=== PATIENT | female | born 2000 | race Caucasian/White ===

== ENCOUNTER 2024-05-07 16:42 | Outpatient (CLI) | payer OTHER, BC, SELFPAY ==
[2024-05-07 17:00] VITALS: BP 127/67; PULSE 76
[2024-05-07 17:07] VITALS: BMI 37.3
[2024-05-07 17:07] LABS: Basophils Absolute Auto 0.1 K/mm3 (0.0-0.1); Basophils Percent Auto 0.5 % (0.2-1.2); Eosinophils Absolute Auto 0.3 K/mm3 (0-0.3); Eosinophils Percent Auto 2.1 % (0-4.4); Hematocrit 36.2 % (37.0-47.0); Hemoglobin 12.1 g/dL (12.0-15.0); Immature Granulocyte Absolute 0.09 K/mm3 (0.00-0.031); Immature Granulocyte Percent A 0.7 % (0-0.5); Lymphocytes Absolute Auto 2.06 K/mm3 (0.9-3.2); Lymphocytes Percent Auto 15.8 % (18.3-44.2); Mean Corpuscular HGB Conc 33.4 g/dl (32-36); Mean Corpuscular Hemoglobin 30.3 pg (26-34); Mean Corpuscular Volume 90.5 fl (80-100); Mean Platelet Volume 11.2 fl (7.4-10.4); Monocytes Percent Auto 7.7 % (2.6-8.5); Neutrophils Absolute Auto 9.6 K/mm3 (1.3-6.7); Neutrophils Percent Auto 73.2 % (45.5-73.1); Platelet Count Result 231 k/mm3 (150-375); Red Cell Distribution Width 12.5 % (11.5-14.5); White Blood Count 13.1 K/mm3 (4.5-10.0)
[2024-05-07 17:15] VITALS: BP 127/68; PULSE 82
[2024-05-07 17:16] LABS: Add Urine Microscopic? YES; Appearance Urine Cloudy (Clear); Bacteria Urine 4+ /hpf; Bilirubin Urine Negative (Negative); Blood Urine Negative (Negative); Color Urine Yellow (Yellow); Glucose Urine UA Negative (Negative); Ketones Urine 1+ mg/dL (Negative); Leukocyte Esterase Ur 2+ LEU/UL (Negative); Need Manual Microscopic Reviewed; Nitrate Urine Negative (Negative); Protein Urine 1+ mg/dL (Negative); RBC Urine 0-2 /hpf (0-2); Specific Grav Ur 1.031 (1.001-1.035); Squamous Epithelial Cell Urine Moderate /hpf (Few); WBC Urine >100 /hpf (0-3)
[2024-05-07 17:19] LABS: Creatinine Urine 233.9 mg/dL
[2024-05-07 17:26] LABS: Total Protein Urine Random < 5 mg/dL; Ur Ttl Prot Creatinine Ratio < 0.02 mg/mg (0-0.20)
[2024-05-07 17:30] VITALS: BP 125/70; PULSE 78
[2024-05-07 17:43] LABS: Alanine Aminotransferase 21 U/L (6-35); Alkaline Phosphatase 69 U/L (38-126); Anion Gap 11 mmol/L (4-12); Aspartate Amino Transferase 17 U/L (14-36); Bilirubin,Total 0.2 mg/dL (0.2-1.3); Blood Urea Nitrogen 7 mg/dL (7-17); Calcium 9.2 mg/dL (8.4-10.2); Carbon Dioxide 19 mmol/L (22-30); Chloride 105 mmol/L (98-107); Estimated CRCL calculation 159 ml/min; Estimated Glomerular Filt Rate > 60; Glucose 87 mg/dL (65-110); Sodium 135 mmol/L (137-145)
[2024-05-07 17:45] VITALS: BP 125/70; PULSE 78
--- NOTE | 2024-05-07 18:21 | PC.NURSE ---
Called Dr. Suarez with pt status. Informed of lab results and BPs. Reactive tracing. June D/C home with prescription for Macrobid BID x7 days.
--- OUTSIDE RECORDS SUMMARY | 2024-05-07 19:00 | XMS_ITS | Referral Summary ---
Author Organization [facility] Address [address] [place] [address] Care Team Providers Care Mechanical Assembler Name Role Phone TysonMaegan parr EDGAR Primary Care Provider [phone] Source Comments [facility],non-owned Affiliates and Associated Physician Practices is amultiple site organization consisting of ambulatory clinics and hospital sitesin [place], [place], [place] and [place]. This disclosure is being madepursuant to the Care Everywhere program and may not contain all information available regarding this patient. Last updated 17.[facility] Allergies Active Allergy Reactions Criticality Noted Date Comments Dust Mite Extract Unknown 07/25/2014 Fentanyl Itching Medium 10/12/2019 Molds & Smuts Unknown 07/25/2014 Pollen Extract Unknown 07/24/2013 Medications * Be aware that medications may not be up to date on this document. Alwaysverify current medications with the patient. Medication Sig Dispensed Refills Start Date End Date Status SPRINTEC 28 0.25-35 MG-MCG tablet 01/29/2020 Active Immunizations Name Administration Dates Next Due HEP A VACCINE, ADULT 12/03/2019 MENINGOCOCCAL CONJUGATE (MCV4P) 07/16/2016 TDAP (7yrs+) 09/29/2012 VARICELLA 06/04/2017 Social History Tobacco Use Types Packs/Day Years Used Date Smoking Tobacco: Never Smokeless Tobacco: Never Alcohol Use Standard Drinks/Week Comments Never 0 (1 standard drink = 0.6 oz pur e alcohol) AUDIT-C Answer Date Recorded Q1: How often do you have a drink containing alc ohol? Never 05/06/2020 Average Number of Drinks Not on file 021 Frequency of Binge Drinking Not on file 10/2020 Sex and Gender Information Value Date Recorded Sex Assigned at Not on file Gender Identity Not on file Sexual Orientation Not on file Last Filed Vital Signs Vital Sign Reading Time Taken Comments Blood Pressure 125/75 05/06/2020 1:59 PM FUND DIRECTOR Pulse 57 05/06/2020 1:59 PM FUND DIRECTOR Temperature 36.3 C (97.4 F) 05/06/2020 1:59 PM FUND DIRECTOR Respiratory Rate - - Oxygen Saturation 98% 05/06/2020 1:59 PM FUND DIRECTOR Inhaled Oxygen Concentration - - Weight 79.7 kg (175 lb 9.6 oz) 05/06/2020 1:59 P M FUND DIRECTOR Height 157.5 cm (5' 2 ) 05/06/2020 1:59 PM FUND DIRECTOR Body Mass Index 32.12 05/06/2020 1:59 PM FUND DIRECTOR Plan of Treatment Not on file Care Teams Mechanical Assembler Relationship Specialty Start Date End Date Maegan Carvajal APRN-CNP [address] [place] [address] PCP - General 03/07/20
--- OUTSIDE RECORDS SUMMARY | 2024-05-07 19:00 | XMS_ITS | Clinical Summary ---
Author Organization [facility] Address [address] [place] [address] Care Team Providers Care Casting Assistant Name Role Phone Unavailable Primary Care Provider Unavailabl e Medications hydrocortisone (HYTONE) 2.5 % Cream Apply to the affected area(s) twice daily as needed 30 Gram 2 02/08/2024 6:24 PM ROTARY DRILLER PROSPECTING 05/17/2023 Active venlafaxine (EFFEXOR XR) 37.5 mg Extended Release 24 hour capsule Take 1 capsule (37.5 mg) by mouth daily 90 Capsule 1 11/02/2023 7:05 PM CDT 08/15/2023 Active Encounters Date Type Department Care Team Description 05/05/2024 External Device Data [facility] Provider, Abstract 05/02/2024 External Device Data [facility] Provider, Abstract 04/18/2024 External Device Data [facility]CTION Provider, Abstract 03/28/2024 External Device Data [facility] Provider, Abstract 03/22/2024 External Device Data [facility] Provider, Abstract from Last 3 Months Immunizations Immunization Administration Dates Next Due (ADACEL/BOOSTRIX)(10 YR UP) TDAP VACCINE, 0.5ML, IM 09/30/2022 INFLUENZA VACCINE QUADRIVALENT 6 MOS UP PF IM ,11/26/2021 INFLUENZA VACCINE TRIVALENT SPLIT VIRUS, (6 MOS UP), 0.5ML (PF), IM 11/02/2023 Social History Tobacco Use Types Packs/Day Years Used Date Smoking Tobacco: Never Assessed Comments Unknown Sex and Gender Information Value Date Recorded Sex Assigned at Not on file Legal Sex Female 1:14 PM CDT Gender Identity Not on file Sexual Orientation Not on file Plan of Treatment Health Maintenance Due Date Last Done Comments HPV VACCINES (1 - 3-dose series) 06/27/2014 HEPATITIS B VACCINES (1 of 3 - 19+ 3-dose series) 06/27/2018 CERVICAL CANCER SCREENING 06/27/2020 DTAP/TDAP/TD VACCINES (2 - T d or Tdap) 09/30/2032 09/30/2022 INFLUENZA VACCINE Completed 11/02/2023, , 11/26/2021 Insurance RX [employer] Member Subscriber Plan / Payer (Ef fective for All Dates) Name:Megan Melgoza Relation to Subscriber:Self Name:Megan Melgoza Subscriber ID:Not on file Payer ID:Not on file Type:Not on file Address: [address] [facility]
--- OUTSIDE RECORDS SUMMARY | 2024-05-07 19:00 | XMS_ITS | Encounter Summary ---
Author Organization [facility] Address [address] [place] [address] Care Team Providers Care Recruitment And Outreach Assistant Name Role Phone Unavailable Primary Care Provider Unavailabl e Encounter Details Date Type Department Care Team (Late st Contact Info) Description 05/05/2024 External Device Data [facility] Provider, Abstract NO ADDRESS ON FILE Social History Tobacco Use Types Packs/Day Years Used Date Smoking Tobacco: Never Assessed Comments Unknown Sex and Gender Information Value Date Recorded Sex Assigned at Not on file Legal Sex Female 1:14 PM CDT Gender Identity Not on file Sexual Orientation Not on file documented as of this encounter Plan of Treatment Not on file documented as of this encounter Visit Diagnoses Not on filedocumented in this encounter
--- OUTSIDE RECORDS SUMMARY | 2024-05-07 19:00 | XMS_ITS | Clinical Summary ---
Author Organization [facility] Address [address] [place] [address] Care Team Providers Care Policy Adviser Name Role Phone TysonMaegan parr EDGAR Primary Care Provider [phone] Source Comments [facility],non-owned Affiliates and Associated Physician Practices is amultiple site organization consisting of ambulatory clinics and hospital sitesin [place], [place], [place] and [place]. This disclosure is being madepursuant to the Care Everywhere program and may not contain all information available regarding this patient. Last updated 17.[facility] Allergies Active Allergy Reactions Criticality Noted Date [...] (MCV4P) 07/16/2016 TDAP (7yrs+) 09/29/2012 VARICELLA 06/04/2017 Family History Medical History Relation Name Comments Diabetes - Type 2 Father Hypertension Father Hypertension Mother Relation Name Status Comments Father Alive Mother Alive Social History Tobacco Use Types Packs/Day Years Used Date Smoking Tobacco: Never Smokeless Tobacco: Never Alcohol Use Standard Drinks/Week Comments Never 0 (1 standard drink = 0.6 oz pur e alcohol) AUDIT-C Answer Date Recorded Q1: How often do you have a drink containing alc ohol? Never 05/06/2020 Average Number of Drinks Not on file 021 Frequency of Binge Drinking Not on file 0310/2020 Sex and Gender Information Value Date Recorded Sex Assigned at Not on file Gender Identity Not on file Sexual Orientation Not on file Last Filed Vital Signs Vital Sign Reading Time Taken Comments Blood Pressure 125/75 05/06/2020 1:59 PM RAILROAD DESIGN CONSULTANT Pulse 57 05/06/2020 1:59 PM RAILROAD DESIGN CONSULTANT Temperature 36.3 C (97.4 F) 05/06/2020 1:59 PM RAILROAD DESIGN CONSULTANT Respiratory Rate - - Oxygen Saturation 98% 05/06/2020 1:59 PM RAILROAD DESIGN CONSULTANT Inhaled Oxygen Concentration - - Weight 79.7 kg (175 lb 9.6 oz) 05/06/2020 1:59 P M RAILROAD DESIGN CONSULTANT Height 157.5 cm (5' 2 ) 05/06/2020 1:59 PM RAILROAD DESIGN CONSULTANT Body Mass Index 32.12 05/06/2020 1:59 PM RAILROAD DESIGN CONSULTANT Plan of Treatment Health Maintenance Due Date Last Done Comments PAP SMEAR 1999 HIV SCREENING 06/27/2014 HPV VACCINE (1 - 3-dose series) 06/27/2014 CHLAMYDIA/GONORRHEA SCREENING 2015 HEPATITIS C SCREENING 06/23/2017 HEPATITIS B VACCINE (1 of 3 - 19+ 3-dose series) 06/27/2018 DTAP/TDAP/TD VACCINES (2 - T d or Tdap) 09/29/2022 09/29/2012 COVID-19 VACCINE (1 - 2023-2 5 season) 2023 INFLUENZA VACCINE (#1) 2023 DEPRESSION SCREENING 02/29/2024 ZOSTER VACCINE (1 of 2) 06/27/2049 MENINGOCOCCAL VACCINE Completed 07/16/2016 HIB VACCINE Aged Out No longer eligi ble based on patient's age to complete this topic MENINGOCOCCAL (Group B) VACCINE Aged Out No longer eligible based on patient's age to complete this topic PNEUMOCOCCAL VACCINE Aged Out No long er eligible based on patient's age to complete this topic Care Teams Policy Adviser Relationship Specialty Start Date End Date Maegan Carvajal APRN-BLEACH MIXER [address] [place], [place] [id number] PCP - General 03/07/20
--- OUTSIDE RECORDS SUMMARY | 2024-05-07 19:00 | XMS_ITS | Patient Health Summary ---
Author Organization [facility] Address [address] [place] [address] Care Team Providers Care Clip Loading Machine Adjuster Name Role Phone Pieroaquiles Maegan EDGAR Primary Care Provider [phone] Note from [facility],non-owned Affiliates and Associated Physician Practices is amultiple site organization consisting of ambulatory clinics and hospital sitesin [place], [place], [place] and [place]. This disclosure is being madepursuant to the Care Everywhere program and may not contain all information available regarding this patient. Last updated 17.[facility] Allergies * Dust Mite Extract(Unknown) * Fentanyl(Itching) -Medium Criticality * Molds & Smuts(Unknown) * Pollen Extract(Unknown) Medications * Be aware that medications may not be up to date on this document. Alwaysverify current medications with the patient. * SPRINTEC 28 0.25-35 MG-MCG tablet(Started 01/29/2020) Immunizations * HEP A VACCINE, ADULT(Given 12/03/2019) * MENINGOCOCCAL CONJUGATE (MCV4P)(Given 07/16/2016) * TDAP (7yrs+)(Given 09/29/2012) * VARICELLA(Given 06/04/2017) Social History Tobacco Use Types Packs/Day Years Used Date Smoking Tobacco: Never Smokeless Tobacco: Never Alcohol Use Standard Drinks/Week Comments Never 0 (1 standard drink = 0.6 oz pur e alcohol) AUDIT-C Answer Date Recorded Q1: How often do you have a drink containing alc ohol? Never 05/06/2020 Average Number of Drinks Not on file 021 Frequency of Binge Drinking Not on file 03/0 10/2020 Sex and Gender Information Value Date Recorded Sex Assigned at Not on file Gender Identity Not on file Sexual Orientation Not on file Last Filed Vital Signs Vital Sign Reading Time Taken Comments Blood Pressure 125/75 05/06/2020 1:59 PM SALESPERSON HEARING AIDS Pulse 57 05/06/2020 1:59 PM SALESPERSON HEARING AIDS Temperature 36.3 C (97.4 F) 05/06/2020 1:59 PM SALESPERSON HEARING AIDS Respiratory Rate - - Oxygen Saturation 98% 05/06/2020 1:59 PM SALESPERSON HEARING AIDS Inhaled Oxygen Concentration - - Weight 79.7 kg (175 lb 9.6 oz) 05/06/2020 1:59 P M SALESPERSON HEARING AIDS Height 157.5 cm (5' 2 ) 05/06/2020 1:59 PM SALESPERSON HEARING AIDS Body Mass Index 32.12 05/06/2020 1:59 PM SALESPERSON HEARING AIDS Care Teams Clip Loading Machine Adjuster Relationship Specialty Start Date End Date Maegan Carvajal APRN-CEMENT PRODUCTION PLANT OPERATOR [address] [place] [address] PCP - General 03/07/20
== END 2024-05-07 17:55 | disposition home or self-care (01) ==
LOC: ANHOBOP 16:47 → ANHOBPP 16:48
PROVIDERS: Visit Provider Obstetrics & Gynecology
DX: O13.9 Gestational [pregnancy-induced] hypertension without significant proteinuria, unspecified trimester (principal); Z3A.00 Weeks of gestation of pregnancy not specified
CPT/HCPCS: 36415; 59025; 80053; 81001; 82570; 84156; 84550; 85025; 87086

== ENCOUNTER 2024-06-04 19:50 | Outpatient (CLI) | payer OTHER, BC, SELFPAY ==
--- OUTSIDE RECORDS SUMMARY | 2024-06-04 20:03 | XMS_ITS | Clinical Summary ---
Author Organization [facility] Address [address] [place] [address] Care Team Providers Care Claims Administrator Name Role Phone Unavailable Primary Care Provider Unavailabl e Allergies Active Allergy Reactions Criticality Noted Date Comments Fentanyl Hives High 05/07/2024 Medications nitrofurantoin (MACROBID) 100 mg capsule Take 1 Capsule (100 mg) by mouth every 12 hours for 7 days. TAKE WITH FOOD/MEAL. 14 Capsule 05/07/2024 6:25 PM CDT 05/07/2024 05/15/19 25 Encounters Date Type Department Care Team Description 05/16/2024 External Device Data [facility] Provider, Abstract 05/16/2024 External Device Data [facility] ABSTRACTION Provider, Abstract 05/08/2024 External Device Data [facility] AB[facility]CTION Provider, Abstract 05/08/2024 External Device Data [facility]STRACTION Provider, Abstract 05/08/2024 External Device Data [facility] ABSTRACTION Provider, Abstract 05/08/2024 External Device Data [facility] ABSTRACTION Provider, Abstract from Last 3 Months Immunizations Immunization Administration Dates Next Due (ADACEL/BOOSTRIX)(10 YR UP) TDAP VACCINE, 0.5ML, IM 05/31/2024 Social History Tobacco Use Types Packs/Day Years Used Date Smoking Tobacco: Never Assessed Comments Unknown Sex and Gender Information Value Date Recorded Sex Assigned at Not on file Legal Sex Female 5:58 PM CDT Gender Identity Not on file Sexual Orientation Not on file Plan of Treatment Health Maintenance Due Date Last Done Comments HPV VACCINES (1 - 3-dose series) 06/27/2014 DTAP/TDAP/TD VACCINES (1 - Tdap) 06/27/2018 06/01/19 25 HEPATITIS B VACCINES (1 of 3 - 19+ 3-dose series) 05/31 CERVICAL CANCER SCREENING 06/27/2020 HPV/Cotest (21-29) 06/27/2020 PAP SMEAR 06/27/2020 PAP SMEAR 06/27/2020 INFLUENZA VACCINE (#1) 2023 Insurance RX [employer] Member Subscriber Plan / Payer (Ef fective 2024-Present) Name:Megan Perez Relation to Subscriber:Self Name:Megan Perez Subscriber ID:Not on file Payer ID:Not on file Type:Not on file Address: [address]
[2024-06-04 20:12] VITALS: BMI 38.5
[2024-06-04 20:47] LABS: Total Volume 24 Hour Urine 1750 ml
[2024-06-04 23:25] LABS: Creatinine 24 Hour Urine 1.4 gm/24 (0.8-1.8); Creatinine Urine 84.7 mg/dL
[2024-06-06 08:26] LABS: Total Volume 24 Hour Urine 1750 ml
[2024-06-06 14:52] LABS: Total Protein Urine Random < 5 mg/dL
[2024-06-06 14:53] LABS: Total Protein Urine 24 Hr < 87 mg/24hr (28-141)
== END 2024-06-04 20:12 | disposition home or self-care (01) ==
LOC: ANHOBOP 20:02 → ANHLDR 20:03
PROVIDERS: Visit Provider Obstetrics & Gynecology
DX: O13.9 Gestational [pregnancy-induced] hypertension without significant proteinuria, unspecified trimester (principal); Z3A.00 Weeks of gestation of pregnancy not specified
CPT/HCPCS: 36415; 81050; 82570; 84156; 99199

== ENCOUNTER 2024-07-14 13:39 | Outpatient (RCR) | payer OTHER, BC, SELFPAY ==
[2024-06-01 17:00] VITALS: BP 125/67; PULSE 78
[2024-06-08 16:27] VITALS: BP 111/63; PULSE 71
[2024-06-15 16:20] VITALS: BP 124/67; PULSE 91
[2024-06-22 16:54] VITALS: BP 133/80; PULSE 88
[2024-06-29 11:50] VITALS: BP 121/62; PULSE 86
[2024-07-06 07:58] VITALS: BP 124/71; PULSE 77
--- NOTE | ~2024-07-14 | US_ITS ---
EXAM EXAMINATION: US OB follow up DATE: 06/01/2024 18:08 CDT INDICATION: -induced hypertension; growth evaluation COMPARISON: 03/30/2024 and 02/28/2024 TECHNIQUE: Real-time transabdominal obstetric ultrasound. FINDINGS: There is a single intrauterine gestation in vertex presentation. The placenta is posterior The tip of the placenta measures 8.6 cm from the cervix. cardiac activity and movement is noted with a heart rate of 144 beats per minute. Deepest vertical pocket of amniotic fluid measures 5 cm The following biometric data were obtained: Biparietal diameter (BPD): 7.8 cm; head circumference (HC): 28.7 cm; abdominal circumference (AC): 25.3 cm; femur length (FL): 5.6 cm. These measurements are concordant. Estimated weight is 1455 g +/- 218 g, which correlates with the 25th percentile when 08/06/2024 i s used as estimated date of delivery. As single measurements, these parameters are each equal to the following estimated gestational ages: BPD: 31 weeks 3 days. HC: 31 weeks 4 days. AC: 29 weeks 4 days. FL: 29 weeks 3 days. estimated gestational age based solely on measurements from this exam is 30 weeks 4 days +/- 2 weeks 1 day. IMPRESSION: Single intrauterine gestation in vertex presentation with cardiac activity identified. Approximate gestational age is 30 weeks and 4 days. Estimated weight is within the 25th percentile, as detailed above Reviewed, dictated and finalized at location A. IMPRESSION: Single intrauterine gestation in vertex presentation with cardiac activit y identified. Approximate gestational age is 30 weeks and 4 days. Estimated weight is within the 25th percentile, as detailed above
[2024-07-14 14:18] VITALS: PULSE 78
== END 2024-07-23 08:26 | disposition home or self-care (01) ==
LOC: ANHOBOP 13:39
PROVIDERS: Visit Provider Obstetrics & Gynecology
DX: O13.9 Gestational [pregnancy-induced] hypertension without significant proteinuria, unspecified trimester (principal)
CPT/HCPCS: 59025; 76816

== ENCOUNTER 2024-07-23 16:54 | Inpatient (IN) | payer OTHER, BC, SELFPAY ==
[2024-07-23] VITALS (11 sets, daily range): BP systolic 97–135; BP diastolic 48–85; PULSE 61–78; TEMP 36.6–37.1; BMI 42.5
--- OUTSIDE RECORDS SUMMARY | 2024-07-23 17:04 | XMS_ITS | Clinical Summary ---
Author Organization [facility] Address [address] [place] [address] Care Team Providers Care Underwriting Analyst Name Role Phone Unavailable Primary Care Provider Unavailabl e Allergies Active Allergy Reactions Criticality Noted Date Comments Fentanyl Hives High 05/07/2024 Encounters Date Type Department Care Team Description 07/19/2024 External Device Data [facility] ABSTRACTION Provider, Abstract 07/19/2024 External Device Data [facility] ABSTRACTION Provider, Abstract 07/18/2024 External Device Data [facility] ABSTRACTION Provider, Abstract 07/17/2024 External Device Data [facility] ABSTRACTION Provider, Abstract 06/12/2024 External Device Data [facility] ABSTRACTION Provider, Abstract [...] 06/27/2020 HPV/Cotest (21-29) 06/27/2020 PAP SMEAR 06/27/2020 INFLUENZA VACCINE (#1) 2023 DTAP/TDAP/TD VACCINES (2 - Td or Tdap) 05/31/2034 Insurance RX [employer] RX Member Subscriber Plan / Payer (Ef fective 2024-Present) Name:Megan Perez Relation to Subscriber:Self Name:Megan Perez Subscriber ID:Not on file Payer ID:Not on file Type:Not on file Address: [address]
[2024-07-23 17:40] LABS: Basophils Percent Auto 0.3 % (0.2-1.2); Eosinophils Absolute Auto 0.1 K/mm3 (0-0.3); Eosinophils Percent Auto 0.6 % (0-4.4); Hematocrit 38.3 % (37.0-47.0); Hemoglobin 12.7 g/dL (12.0-15.0); Immature Granulocyte Absolute 0.07 K/mm3 (0.00-0.031); Immature Granulocyte Percent A 0.5 % (0-0.5); Lymphocytes Absolute Auto 1.59 K/mm3 (0.9-3.2); Lymphocytes Percent Auto 12.4 % (18.3-44.2); Mean Corpuscular HGB Conc 33.2 g/dl (32-36); Mean Corpuscular Hemoglobin 29.7 pg (26-34); Mean Corpuscular Volume 89.7 fl (80-100); Mean Platelet Volume 11.8 fl (7.4-10.4); Monocytes Absolute Auto 0.9 K/mm3 (0.1-0.6); Monocytes Percent Auto 7.1 % (2.6-8.5); Neutrophils Absolute Auto 10.2 K/mm3 (1.3-6.7); Neutrophils Percent Auto 79.1 % (45.5-73.1); Platelet Count Result 229 k/mm3 (150-375); Red Blood Count 4.27 M/mm3 (4.2-5.4); Red Cell Distribution Width 12.8 % (11.5-14.5); White Blood Count 12.8 K/mm3 (4.5-10.0)
--- NOTE | 2024-07-23 17:44 | LDADM ---
This patient, Megan Perez, was admitted to Labor/Delivery/Recovery 108 on 07/23/24 at 16:54. Plans for labor, pain management and were discussed with patient. Patient/family oriented to hospital policies and general routines including ID bracelet, bed and alarms, visiting hours, pain management, procedures, bathroom and other care routines, personal items, smoking policy, room service/diet and guest tray routines, security routines, and visiting hours. Patient/Family are encouraged to report perceived risks to care and to ask questions if they do not understand what they are told or what they should do. See OBIX for further documentation.
[2024-07-23 17:50] LABS: Alanine Aminotransferase 19 U/L (6-35); Albumin Level 3.8 g/dL (3.5-5.1); Alkaline Phosphatase 101 U/L (38-126); Anion Gap 10 mmol/L (4-12); Aspartate Amino Transferase 23 U/L (14-36); Bilirubin,Total 0.2 mg/dL (0.2-1.3); Blood Urea Nitrogen 6 mg/dL (7-17); Calcium 9.3 mg/dL (8.4-10.2); Carbon Dioxide 20 mmol/L (22-30); Chloride 105 mmol/L (98-107); Estimated Glomerular Filt Rate > 60; Glucose 87 mg/dL (65-110); Potassium 3.7 mmol/L (3.4-5.0); Sodium 135 mmol/L (137-145); Uric Acid 4.7 mg/dL (2.5-7.5)
[2024-07-23] MEDS: DINOPROSTONE 10 MG VAG INSERT VAGINAL (18:04)
[2024-07-23 18:19] LABS: Syphilis IgG/IgM Antibody Negative (Negative)
[2024-07-23 18:33] LABS: HIV 1/2 Ab P24 Ag Result Negative (Negative)
[2024-07-24] VITALS (117 sets, daily range): BP systolic 78–140; BP diastolic 35–85; PULSE 55–143; RESP 16–18; TEMP 36.6–37.2; O2SAT 91–100
[2024-07-24] MEDS: LACTATED RINGERS 1,000 ML 125 ML IV CONT (06:50)
--- NOTE | 2024-07-24 07:35 | PM.IMHP ---
H&P: HPI History of Present Illness Date/Time: 07/24/24 07:35 Chief Complaint: Induction of labor Narrative: Megan is a 24yo @ 37.5wks who presented overnight for medical induction of labor due to GHTN. She has been undergoing testing which has been reassuring. She reports good movement. Irregular ctx. No VB or LOF. She is s/p cervidil; had SROM, clear at 0505 this morning; now s/p epidural and comfortable. Her is complicated by: - Anxiety- previously on venlafaxine - Psoriasis- monoclonal antibody prior to - GHTN Review of Systems Constitutional: Constitutional: Denies chills, Denies fever(s) and Denies headache(s) Eyes: Eyes: Denies change in vision ENT: Denies headache(s) Cardiovascular: Cardiovascular: Denies chest pain and Denies dyspnea Respiratory: Respiratory: Denies dyspnea Genitourinary: Genitourinary: Denies abnormal vaginal bleeding and Denies vaginal discharge Neurologic: Denies headache(s) Psychiatric: Psychiatric: Denies anxiety and Denies depression [facility] Past Medical History Medical History Suppression of menses Surgical History Surgical History History of ankle surgery bone spur Family History Family History Mother Heart disease Hypertension Father Diabetes mellitus Hypertension Grandparent Heart disease Social History Social History Smoking status: Former smoker Tobacco type: e-cigarettes/vaping Smoking end date: 11/29/23 Alcohol intake: former Substance use: never Substance use type: does not use Do You Feel Safe in your Home?: Yes Lack of Transportation: No Lack of Food: Never True Current Housing: I Have Housing Concerned About Future Housing: No Difficulty Paying Gas/Electric Bills: No Difficulty Paying for Meds: No Currently Unemployed: No Education: Bachelor's Degree Difficulty w/ Childcare or Family Care: No Living arrangements: with family Additional living arrangements comments: Occupation/Education: student 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 Gender identity (if verbalized by the patient): Female Sexual Orientation (if Verbalized by the Patient): Straight or Heterosexual Spiritual care concerns: No Meds Home Medications and Allergies Home Medications ?Medication ?Instructions ?Recorded ?Confirmed ?Type vits no.126-ferrous fum 1 tablet PO DAILY 12/19/23 07/23/24 History 28 mg iron-folic acid 800 mcg tablet (Classic ) aspirin 325 mg tablet 325 mg PO DAILY 05/29/24 07/23/24 History Allergies Allergy/AdvReac Type Severity Reaction Status Date / Time fentanyl Allergy Severe Other Verified 07/17/24 11:23 Vital Signs Vital Signs - 24 hr 07/23/24 17:41 07/23/24 17:45 07/23/24 18:00 Temperature 98.1 F Pulse Rate 71 Blood Pressure 135/85 Oxygen Delivery Room Air 07/23/24 18:01 07/23/24 18:31 07/23/24 19:01 Temperature Pulse Rate 66 61 70 Blood Pressure 114/84 114/60 109/66 Oxygen Delivery 07/23/24 19:31 Temperature Pulse Rate 71 Blood Pressure 127/59 L Oxygen Delivery Exam Const: General: cooperative, comfortable, no acute distress and obese Nutritional Appearance: obese Orientation/consciousness: patient oriented x3 Resp: Effort & Inspection: normal respiratory effort Cardio: Rate: regular rate GI: GI Palp: No abdominal tenderness : Other: FHT's: 130's/ mod gianni/ + accels/ occasional variable decels - cat 2 TOCO: ctxs q5min, IUPC placed on this exam Cervix: 8/80/0 Membranes: SROM, clear 0505 Presentation: cephalic Skin: General skin exam: normal color Neuro: General: patient oriented x3 Extrem: General: normal to inspection Psych: Appearance: grossly normal Affect: normal affect Attitude: cooperative H&P: Results Labs Labs: Short CBC 07/23/24 Range/Units 17:34 WBC 12.8 H (4.5-10.0) K/mm3 Hgb 12.7 (12.0-15.0) g/dL Hct 38.3 (37.0-47.0) % Plt Count 229 (150-375) k/mm3 BMP 07/23/24 17:34 Sodium 135 L Potassium 3.7 Chloride 105 Carbon Dioxide 20 L BUN 6 L Creatinine 0.54 L Glucose 87 Calcium 9.3 Liver Function 07/23/24 Range/Units 17:34 Total Bilirubin 0.2 (0.2-1.3) mg/dL AST 23 (14-36) U/L ALT 19 (6-35) U/L Alkaline Phosphatase 101 (38-126) U/L Albumin 3.8 (3.5-5.1) g/dL Assessment and Plan Assessment and plan (1) Gestational hypertension affecting first : Code(s): O13.9 - Gestational [-induced] hypertension without significant proteinuria, unspecified trimester Status: Acute Plan - Admitted overnight for medical induction of labor; risks and benefits discussed - s/p cervidil overnight; cervix favorable - Low dose pitocin per protocol - Continuous monitoring, IUPC placed on this exam--- category 2 but overall reassuring. Will start amnioinfusion. - GBS neg - S/p anesthesia consult for epidural
[2024-07-24] MEDS: ePHEDrine sulfate INJ 50 MG/ML AMPUL (07:59)
--- NOTE | 2024-07-24 10:00 | S_PTH ---
PATIENT: Megan Perez LOC: [facility] U#:[id number] AGE/SX: 24/F ROOM: 286 RE07/23/[address]: Aretha Suarez MD : 2000 BED: 00 DIS: 07/26/2024 SPEC #: [id number] RECD: 07/25/24 06:47 STATUS: STANLEY REAaron #: [id number] JERRI: 07/24/24 10:[address]: Aretha Suarez DEPT: [facility] Surgical RECD BY: Marci Sanchez ENTERED: 07/25/24 06:47 SP TYPE: Surgical OTHR DR: OPTICAL COATING TECHNICIAN PHYSICIAN Tissues: A - Placenta Procedures: Hematoxylin and Eosin Stain Gross and Microscopic Level 5
[2024-07-24] MEDS: OXYTOCIN 30 UNITS/NS 500 ML 30 UNITS/500 ML BAG 125 UNITS IV CONT (10:18)
--- NOTE | 2024-07-24 10:41 | P.PCNOB_ITS ---
OB - Vaginal Delivery Note Procedure Delivery date: 07/24/24 Events: Gestational Hypertension Induction method: Per Cervidil Protocol Delivery augmentation: Rupture of Membranes and Pitocin Delivery monitor: External FHT and Internal Uterine Route of delivery: Laceration Description: Perineal - 1st Degree and Labial (right) Delivery repair: vicryl Specimen: Yes (placenta) Quantitative Blood Loss (ml): 200 Anesthesia type: Epidural Disposition: Floor Complications: No immediate complications Baby Date of : 07/24/24 Time of : 09:38 Gestational Age by Date: 37 (5) gender: Female presentation: vertex position: Left Occiput Anterior Placenta delivery description: Expressed Cord Vessel Description: 3 Vessels and Delayed Cord Clamping score one minute: 9 score five minutes: 9 Narrative: Megan rapidly progressed to complete dilation with strong desire to push. She pushed for approximately 20 minutes with good maternal effort. She delivered the head over intact perineum. No nuchal cord was palpated. She easily delivered the 's shoulders and body without complication. The infant was immediately placed skin to skin and her mouth and nose were bulb suctioned and spontaneous cry was heard. Delayed cord clamping was performed. The umbilical cord was then doubly clamped and cut. A segment of the cord was collected for cord gases. The remaining cord blood was collected for typing. With Pitocin running and gentle downward traction on the cord, the placenta delivered without complication. Slight increase in bleeding was noted therefore bimanual massage was performed and uterus was then noted to be firm with minimal bleeding. She was examined and a right labial laceration as well as a first- degree perineal laceration were identified. The labial laceration was repaired using 3-0 Vicryl in a running fashion and good hemostasis was noted. The first- degree perineal laceration was repaired using 2-0 Vicryl and good hemostasis was noted. Her uterus remained firm with minimal bleeding. Sponge, lap, instrument, and needle counts were correct at the end of the procedure. Mom and baby were left bonding in the birthing suite in stable condition.
[2024-07-24] MEDS: ACETAMINOPHEN 325 MG TABLET 650 MG PO (12:03)
[2024-07-24] MEDS: WITCH HAZEL 40 PADS 1 PAD TOPICAL (12:07)
[2024-07-24] MEDS: BENZOCAINE 20% AER SPR (*SP) 56 GM CAN 1 SPRAY TOPICAL (12:07)
--- NOTE | 2024-07-24 12:49 | OBPPTRN ---
Patient transferred to post room #286 via wheelchair. Support person present. Oriented to unit, room, information board, rooming in, admission packet and security measures. Patient verbalizes understanding.
[2024-07-24] MEDS: IBUPROFEN 600 MG TABLET PO (16:06)
--- NOTE | 2024-07-24 17:25 | PC.NURSE ---
Consulted with patient to assess needs related to . Discussed with mother her successes, concerns and any questions she has. We reviewed working with the , supporting breast, protecting her nipples with an optimal deep latch, good positioning, and good hand washing. Encouraged understanding the benefits of skin to skin, responding to feeding cues, frequencies of feeding 8-12 times in 24 hours (approximately 2-3 hours), duration of feedings, milk production, intake/output feeding sheet and signs of adequate intake encouraging swallowing at the breast. Reviewed positioning and alignment, supporting breast, off-centered (asymmetrical latch) and leading with the chin with big, open, wide gape. latched optimally to the [left] breast in [football] position. Education given to the mother of how to visualize the suckling (with good rocking jaw motion) swallows (dropping of the lower jaw) and how to listen for drinking at the breast (the ka sound). The infant was [able] to maintain latch without discomfort to mother. Nipple care reviewed with optimal latch, good positioning and using clean hands when touching her breast. Resources used to facilitate learning were used from the [visual handouts/ tool/mom and baby guide]. Mother voiced understanding of the education shared, to call for assistance if the infant does not latch or if there is discomfort with . Reported to the Primary RN.
[2024-07-25 04:30] VITALS: BP 114/69; PULSE 82; RESP 18; TEMP 36.7; O2SAT 97
[2024-07-25 05:32] LABS: Hematocrit 32.8 % (37.0-47.0); Hemoglobin 10.8 g/dL (12.0-15.0); Mean Corpuscular HGB Conc 32.9 g/dl (32-36); Mean Corpuscular Hemoglobin 30.5 pg (26-34); Mean Corpuscular Volume 92.7 fl (80-100); Platelet Count Result 185 k/mm3 (150-375); Red Blood Count 3.54 M/mm3 (4.2-5.4); Red Cell Distribution Width 13.1 % (11.5-14.5); White Blood Count 12.6 K/mm3 (4.5-10.0)
--- NOTE | 2024-07-25 07:05 | P.PNOB_ITS ---
OB - PN: Subj Subjective Date/time seen: 07/25/24 07:05 Narrative: PPD#1 Megan reports doing well today. 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 Her pain is controlled. She is tolerating regular diet, voiding, passing gas, and ambulating without issues. She is breast feeding. OB - PN: Obj Data Labs 07/25/24 04:36 07/23/24 17:34 Labs: Laboratory Results - last 24 hr 07/25/24 04:36 WBC 12.6 H RBC 3.54 L Hgb 10.8 L Hct 32.8 L MCV 92.7 MCH 30.5 MCHC 32.9 RDW 13.1 Plt Count 185 MPV 12.0 H OB - PN A/P Assessment and Plan (1) Normal vaginal delivery of first : Code(s): O80 - Encounter for full-term uncomplicated delivery Status: Acute (2) Gestational hypertension: Qualifiers: Trimester: third trimester Qualified Code(s): O13.3 - Gestational [-induced] hypertension without significant proteinuria, third trimester Code(s): O13.9 - Gestational [-induced] hypertension without significant proteinuria, unspecified trimester Status: Acute Plan day: 1 Plan: routine care Comments: - PO pain meds - Regular diet - Ambulation and hydration encouraged - Continue putting baby to breast q2-3hr Time Spent With Patient Time: Total time spent is greater than 50% in coordination of care (as documented) at patient's floor/unit and/or counseling patient: Review of Systems 2 Constitutional: Constitutional: Denies chills, Denies fever(s) and Denies headache(s) Eyes: Eyes: Denies change in vision ENT: Denies dizziness and Denies headache(s) Cardiovascular: Cardiovascular: Denies chest pain, Denies palpitations and Denies dyspnea Respiratory: Respiratory: Denies cough and Denies dyspnea Gastrointestinal: Gastrointestinal: Denies nausea and Denies vomiting Neurologic: Denies dizziness and Denies headache(s) Endocrine: Endocrine: Denies palpitations Exam 2 Const: General: cooperative, comfortable, no acute distress and obese O rientation/consciousness: patient oriented x3 Resp: Effort & Inspection: normal respiratory effort Auscultation: clear to auscultation bilaterally Cardio: Rate: regular rate GI: Inspection: non-distended GI Palp: No abdominal tenderness and Yes Soft to palpation Auscultation: normal bowel sounds : Other: fundus firm Skin: General skin exam: normal color Neuro: General: patient oriented x3 Extrem: General: normal to inspection Psych: Appearance: grossly normal Affect: normal affect Attitude: c ooperative
[2024-07-25 07:35] VITALS: BP 119/56; PULSE 82; RESP 16; TEMP 37.2; O2SAT 97
--- NOTE | 2024-07-25 07:50 | WPDANLDPN2 ---
Anes-Prog Note L&D Date/Time: 07/25/24 07:50 Neuro status: Neuro function grossly intact. Cardiovascular status: normal Respiratory status: normal Airway patency: baseline Mental status: baseline Vital Signs: Last Vital Signs Temp 36.7 C 07/25/24 04:30 Pulse 82 07/25/24 04:30 Resp 18 07/25/24 04:30 BP 114/69 07/25/24 04:30 Pulse Ox 97 07/25/24 04:30 O2 Del Method Room Air 07/25/24 07:30 Pain score (VAS): 2 I/O: Intake & Output 07/24/24 07/24/24 07/25/24 15:59 23:59 07:59 Output Total 255 1850 Balance -255 -1850 Patient feedback: Patient satisfied with anesthetic care.
[2024-07-25] MEDS: IBUPROFEN 600 MG TABLET PO (08:56)
[2024-07-25] MEDS: MULTIVIT/MIN/PREN/FOL AC/IRON TABLET 1 TAB PO (08:56)
--- NOTE | 2024-07-25 09:53 | PC.NURSE ---
Called to bedside by primary RN to assist with infant feeding. Upon entering room, was swaddled and being held by mother. Educated parents on methods to wake for feeding and demonstrated undressing infant and talking to infant to stimulate infant to wake for feeding. was easily stimulated and placed to mothers left breast. Mother handles her infant with confidence and was able to place infant in football position and latch independently. Mother denies pain at this time. Discussed to call for assistance with next feeding, if needed. Communication board updated.
[2024-07-25 11:48] VITALS: BP 118/60; PULSE 76; RESP 16; TEMP 36.6; O2SAT 98
[2024-07-25 16:15] VITALS: BP 121/58; PULSE 75; RESP 18; TEMP 36.8; O2SAT 98
[2024-07-25 19:15] VITALS: BP 134/85; PULSE 79; RESP 18; TEMP 36.9; O2SAT 100
[2024-07-25] MEDS: ACETAMINOPHEN 325 MG TABLET 650 MG PO (20:25)
[2024-07-26 00:20] VITALS: BP 124/69; PULSE 76; RESP 18; TEMP 36.6; O2SAT 99
[2024-07-26 05:31] VITALS: BP 126/56; PULSE 61; RESP 16; TEMP 36.9; O2SAT 100
--- NOTE | 2024-07-26 07:02 | P.DS_ITS ---
DS: Admitting Diagnosis Discharge Date 07/26/24 Admitting Diagnosis Gestional hypertension DS: Discharge Diagnosis Discharge Diagnosis (1) Normal vaginal delivery of first : Code(s): O80 - Encounter for full-term uncomplicated delivery Status: Acute (2) Gestational hypertension: Qualifiers: Trimester: third trimester Qualified Code(s): O13.3 - Gestational [-induced] hypertension without significant proteinuria, third trimester Code(s): O13.9 - Gestational [-induced] hypertension without significant proteinuria, unspecified trimester Status: Acute OB - DS: Summary OB Procedures : NST, PIH Mgmt and Ultrasound OB Procedures Intrapartum: Spontaneous Vag Delivery OB Procedures: : None Peripartum Data Infant Delivery Method: Natural Vaginal Laceration Description: Perineal - 1st Degree and Labial (right) complications: none 1: Gender: Female Disposition of : home Status at Discharge Functional status at discharge: independent ambulation Overall status at discharge: patient is back to baseline Time Spent with Patient Time attestation: Total time spent providing and/or coordinating discharge services: Exam Const: General: cooperative, comfortable and no acute distress Nutritional Appearance: obese Orientation/consciousness: patient oriented x3 Resp: Effort & Inspection: normal respiratory effort Auscultation: clear to auscultation bilaterally Cardio: Rate: regular rate GI: Inspection: non-distended GI Palp: No abdominal tenderness and Yes Soft to palpation Auscultation: normal bowel sounds : Other: fundus firm Skin: General skin exam: normal color Neuro: General: patient oriented x3 Extrem: General: normal to inspection Psych: Appearance: grossly normal Affect: normal affect Attitude: cooperative DS: Data Data Completed and Pending Pending studies at discharge: Pending at discharge 07/24/24 10:00 Surgical [PTH] Routine Labs on day of discharge: Labs from last 24 hours 07/25/24 04:36 WBC 12.6 H RBC 3.54 L Hgb 10.8 L Hct 32.8 L MCV 92.7 MCH 30.5 MCHC 32.9 RDW 13.1 Plt Count 185 MPV 12.0 H Discharge Plan Discharge Attending physician on discharge: Aretha Suarez Discharging Clinician: Aretha Suarez Anticipated Discharge Date/Time: 07/26/24 11:00 Patient Disposition: Home Activity: may shower and pelvic rest Diet: regular Patient Instructions: Vaginal Delivery (DC) Patient Language: Tunisian Stand Alone Forms: General Discharge Information Follow-up/Referrals: Aretha Suarez MD [Physician] - 4 Weeks Discharge Medications: New ibuprofen 800 mg tablet 800 mg PO TID Qty: 30 0RF acetaminophen 500 mg tablet 1,000 mg PO TID Qty: 60 0RF docusate sodium [Colace] 100 mg capsule 100 mg PO BID Qty: 90 0RF Continued Classic 28 mg iron- 800 mcg tablet 1 tablet PO DAILY Discontinued aspirin 325 mg tablet 325 mg PO DAILY Date of admission: 07/23/24 16:54 Primary Care Provider: PHYSICIAN,OUTSIDE SALES ACCOUNT REPRESENTATIVE Admitting Provider: Aretha Suarez Attending physician on admission: Aretha Suarez Condition: Stable
--- NOTE | 2024-07-26 08:20 | PC.NURSE ---
Consulted with mother concerning needs and she shared her ability to independently latch infant optimally without pain. Per mother she did use a nipple shield twice but only as a tool, she was able to remove and then latch baby without it. Mother is feeding appropriately for growth of and understands stimulating infant to eat if needed. Infant has had appropriate feedings in the last 24 hours meets the outcomes for weight, output, blood sugar and jaundice at this time. Reinforced understanding of milk production, transition of milk, signs of adequate intake, transition of stool, prevention/relief of engorgement, plugged ducts, mastitis, responsive watching for feeding cues, the different methods of stimulating infant to breastfeed 1-3 hours after the start of the last feeding, community resources, and when to call a provider using the resource of the feeding sheet along with the mom and baby guide. Mother voiced understanding of the information shared, is confident to continue effectively her infant at home, when to call for assistance, denies any additional assistance or education at this time. Reported to the Primary RN.
[2024-07-26 08:40] VITALS: BP 120/71; PULSE 62; RESP 18; TEMP 36.3; O2SAT 98
--- NOTE | 2024-07-26 12:05 | PC.NURSE ---
Mother called out and wanted information regarding using her breast pump. Instructions given on cleaning, care, usage, that there should be no pain, pumping schedule for milk production after she returns to work and she also plans to pump every so often so that father of baby can also feed, collection, and storage of human milk. Patient was assessed for correct placement, flange size (both nipples measured 16mm), to pump for comfort and nipple stretching/stimulation for adequate milk production. Parents are encouraged to record the pumping schedule on the feeding sheet.?Mother voiced understanding of the education shared along with mom/baby guide and the pump measurement, flange fit handout for additional resource information. Reported to the Primary RN.
[2024-07-28 11:45] VITALS: BP 112/70; PULSE 94; RESP 18; TEMP 36.6; O2SAT 100
== END 2024-07-26 12:26 | disposition home or self-care (01) | DRG 807 ==
LOC: ANHLDR 17:03 → ANHOB2 07-24 13:00
PROVIDERS: Admitting Provider Obstetrics & Gynecology; Visit Provider Obstetrics & Gynecology
DX: O13.4 Gestational [pregnancy-induced] hypertension without significant proteinuria, complicating childbirth (principal); Z37.0 Single live birth; O99.344 Other mental disorders complicating childbirth; F41.9 Anxiety disorder, unspecified; O99.72 Diseases of the skin and subcutaneous tissue complicating childbirth; O70.0 First degree perineal laceration during delivery; O69.3XX0 Labor and delivery complicated by short cord, not applicable or unspecified; Z3A.37 37 weeks gestation of pregnancy; L40.9 Psoriasis, unspecified
CPT/HCPCS: 36415; 80053; 84550; 85025; 85027; 86593; 86703; 86850; 86900; 86901; 88307; A9270; G0432; J2590; J2795; J7120